=== PATIENT | female | born 1990 | race Caucasian/White ===

== ENCOUNTER 2018-10-18 12:20 | Emergency (ER) | payer MEDICAID | END 2018-10-18 15:24 | disposition left against medical advice (07) | LOC: ER 12:20 | DX: Z53.21 Procedure and treatment not carried out due to patient leaving prior to being seen by health care provider (principal) ==

== ENCOUNTER 2018-10-23 05:29 | Observation (INO) | payer MEDICAID | END 2018-10-23 05:45 | disposition left against medical advice (07) | LOC: 8EST NSY 05:29 | PROVIDERS: ADMIT Specialist; ATTEND Specialist | DX: O62.9 Abnormality of forces of labor, unspecified (principal); Z3A.00 Weeks of gestation of pregnancy not specified | CPT/HCPCS: 99281; G0378 ==

== ENCOUNTER 2018-11-26 12:41 | Observation (INO) | payer MEDICAID ==
[~2018-11-26] VITALS: Ht 165.1 cm; Wt 82.6 kg
== END 2018-11-26 13:55 | disposition left against medical advice (07) ==
LOC: 8 EST LDRP 12:41 → OBSVTOIN 12:41 → INTOOBSV 12:41
PROVIDERS: ADMIT Obstetrics & Gynecology; ATTEND Obstetrics & Gynecology
DX: O62.9 Abnormality of forces of labor, unspecified (principal); Z3A.38 38 weeks gestation of pregnancy
CPT/HCPCS: 99281; G0378

== ENCOUNTER 2018-11-30 08:52 | Inpatient (IN) | payer MEDICAID ==
[~2018-11-30] VITALS: Ht 157.5 cm; Wt 81.6 kg
[2018-11-30] MEDS ORDERED: LACTATED RINGERS 1,000 ML IV SCH (10:04)
[2018-11-30] MEDS ORDERED: DEXT 5%/LR + PITOCIN 20UNITS/L 1,000 ML IV SCH ×2 (10:04→17:10)
[2018-11-30] MEDS ORDERED: NALOXONE HCL 0.4 MG/ML 1ML VIAL IM PRN (10:15)
[2018-11-30] MEDS ORDERED: CARBOPROST TROMETHAMINE 250 MCG/ML AMPUL IM PRN (10:15)
[2018-11-30] MEDS ORDERED: METHYLERGONOVINE MALEATE 0.2 MG/ML IM PRN (10:15)
[2018-11-30 13:54] LABS: INR 0.9; PARTIAL THROMBOPLASTIN TIME 28.3 sec (23.4-31.0); PROTHROMBIN TIME 9.4 sec (9.1-11.1)
[2018-11-30 14:04] LABS: BASOPHILS % 0.3 % (0.0-2.0); EOSINOPHILS % 0.4 % (0.0-5.0); HEMATOCRIT. 34.3 % (36.0-48.0); HEMOGLOBIN. 11.7 g/dL (12.0-16.0); LYMPHOCYTES % 24.3 % (20.0-50.0); MEAN CORPUSCULAR HEMOGLOBIN 29.9 pg (28.0-32.0); MEAN CORPUSCULAR VOLUME 87.6 fL (81.0-99.0); MEAN PLATELET VOLUME 8.8 fl (7.4-10.4); MONOCYTES % 11.1 % (2.0-8.0); NEUTROPHILS % 63.9 % (40.0-76.0); PLATELET 226 x1000/uL (130-400); RED BLOOD CELL COUNT 3.92 mill/uL (4.2-5.4); RED CELL DISTRIBUTION WIDTH 12.7 % (11.6-14.6)
[2018-11-30 14:35] LABS: HEPATITIS B SURFACE ANTIGEN NEGATIVE
[2018-11-30] MEDS ORDERED: BUPIVACAINE HCL/DEXTROSE/PF 0.75% 2ML AMP INJ ONE (15:29)
[2018-11-30] MEDS ORDERED: MORPHINE SULFATE/PF 1MG/ML 10ML AMP ONE (15:30)
[2018-11-30] MEDS ORDERED: OXYTOCIN 10 UNITS/ML 1ML ONE (15:55)
[2018-11-30] MEDS ORDERED: KETAMINE HCL 50 MG/ML 10ML ONE (15:57)
[2018-11-30] MEDS ORDERED: MIDAZOLAM HCL 2 MG/2 ML VIAL ONE ×2 (15:57→16:13)
[2018-11-30] MEDS ORDERED: SODIUM CHLORIDE 0.9% 10ML VIAL ONE (16:18)
[2018-11-30] MEDS ORDERED: EPHEDRINE SULFATE 50MG/ML VIAL ONE (16:18)
[2018-11-30] MEDS ORDERED: CEFAZOLIN SODIUM 1000MG/VIAL ONE (16:18)
[2018-11-30] MEDS ORDERED: RHO(D) IMMUNE GLOBULIN 300 MCG/SYR IM PRN (17:00)
[2018-11-30] MEDS ORDERED: IBUPROFEN 400MG TABLET PO PRN (17:00)
[2018-11-30] MEDS ORDERED: HYDROMORPHONE HCL/PF 2MG/ML CPJ IM PRN (17:00)
[2018-11-30] MEDS ORDERED: BISACODYL 10MG SUPP PR PRN (17:00)
[2018-11-30] MEDS ORDERED: IBUPROFEN 800MG TABLET PO PRN (17:00)
[2018-11-30] MEDS ORDERED: ACETAMINOPHEN WITH CODEINE 300/30MG TABLET PO PRN (17:00)
[2018-11-30] MEDS ORDERED: HYDROMORPHONE HCL/PF 2MG/ML CPJ IV PRN (18:00)
[2018-11-30] MEDS ORDERED: ONDANSETRON HCL 4MG/2ML INJ IV PRN (18:00)
[2018-11-30] MEDS ORDERED: MEPERIDINE HCL/PF 25MG/ML CPJ IV PRN (18:00)
[2018-11-30] MEDS ORDERED: LABETALOL 5MG/ML SYR 20 MG/4 ML SYRINGE IV PRN (18:00)
[2018-11-30 19:02] LABS: CLARITY URINE CLEAR (CLEAR); COLOR URINE DARK YELLOW (YELLOW); KETONES URINE 2+ (NEGATIVE); LEUKOCYTE ESTERASE URINE NEGATIVE (NEGATIVE); NITRITE URINE NEGATIVE (NEGATIVE); OCCULT BLOOD URINE 1+ (NEGATIVE); PROTEIN URINE NEGATIVE (NEGATIVE); SPECIFIC GRAVITY URINE 1.027 (1.005-1.030)
[2018-11-30 19:17] LABS: *BARBITURATES SCREEN URINE NEGATIVE (NEGATIVE); *BENZODIAZEPINES SCREEN URINE NEGATIVE (NEGATIVE)
[2018-11-30 19:18] LABS: *COCAINE SCREEN URINE NEGATIVE (NEGATIVE); CANNABINOID URINE SCREEN NEGATIVE (NEGATIVE); METHADONE URINE SCREEN NEGATIVE (NEGATIVE); OPIATES URINE SCREEN NEGATIVE (NEGATIVE); PHENCYCLIDINE URINE SCREEN NEGATIVE (NEGATIVE)
[2018-11-30 20:00] VITALS: BP 99/60
[2018-11-30 20:30] VITALS: BP 99/60
[2018-11-30 20:35] LABS: *AMPHETAMINES SCREEN URINE PRESUMTIVE POSITIVE (NEGATIVE)
[2018-12-01] MEDS ORDERED: MORPHINE SULFATE/PF 1MG/ML 10ML AMP ONE (01:35)
[2018-12-01] MEDS ORDERED: MIDAZOLAM HCL 2 MG/2 ML VIAL ONE (02:45)
[2018-12-01] MEDS ORDERED: HYDROMORPHONE HCL/PF 2MG/ML (OR) ONE (02:45)
[2018-12-01 08:00] VITALS: BP 102/64
[2018-12-06 05:09] LABS: AMPHETAMINE CONF URINE Positive (.)
== END 2018-12-01 11:20 | disposition home or self-care (01) | DRG 540 ==
LOC: 8 EST LDRP 08:52 → OBSVTOIN 15:54 → 8EST 19:30
PROVIDERS: ADMIT Obstetrics & Gynecology; ATTEND Obstetrics & Gynecology
PROC: 10D00Z1 Extraction of Products of Conception, Low, Open Approach (ICD-10-PCS; principal; 2018-11-30)
PROC: 0UB70ZZ Excision of Bilateral Fallopian Tubes, Open Approach (ICD-10-PCS; 2018-11-30)
DX: O34.211 Maternal care for low transverse scar from previous cesarean delivery (principal); O41.03X0 Oligohydramnios, third trimester, not applicable or unspecified; O69.1XX0 Labor and delivery complicated by cord around neck, with compression, not applicable or unspecified; O77.0 Labor and delivery complicated by meconium in amniotic fluid; Z3A.39 39 weeks gestation of pregnancy; Z37.0 Single live birth; Z30.2 Encounter for sterilization
CPT/HCPCS: 36415; 80305; 80307; 86592; 86703; 86762; 86850; 86900; 86920; 87340; 88302; 88307; 99281; G0378; J0690; J1170; J2250; J2274; J2405; J2590; J3490

== ENCOUNTER 2020-09-26 17:41 | Emergency (ER) | payer SELFPAY ==
[~2020-09-26] VITALS: Ht 165.1 cm; Wt 91.0 kg
[2020-09-26 17:54] VITALS: BP 115/72
== END 2020-09-26 22:15 | disposition left against medical advice (07) ==
LOC: ER 17:41
DX: Z53.21 Procedure and treatment not carried out due to patient leaving prior to being seen by health care provider (principal)

== ENCOUNTER 2022-03-31 06:43 | Emergency (ER) | payer MEDICAID, OTHER ==
[~2022-03-31] VITALS: Ht 165.1 cm; Wt 73.0 kg
[2022-03-31 07:06] VITALS: BP 132/90
[2022-03-31 12:17] LABS: HEPATITIS B SURFACE ANTIGEN NEGATIVE
== END 2022-03-31 09:57 ==
LOC: ER 07:14
DX: S00.11XA Contusion of right eyelid and periocular area, initial encounter (principal); Y04.2XXA Assault by strike against or bumped into by another person, initial encounter; Y93.9 Activity, unspecified; Y92.89 Other specified places as the place of occurrence of the external cause
CPT/HCPCS: 36415; 99283